=== PATIENT | female | born 1965 | race Caucasian/White ===

== ENCOUNTER 2024-04-30 12:13 | Emergency (ER) | payer SELFPAY ==
[2024-04-30] MEDS ORDERED: Sodium Chloride 0.9% 10 ML Syringe FLUSH PRN (12:46)
[2024-04-30 12:53] LABS: BASOPHILS ABSOLUTE AUTO 0.1 x10^3/uL (0.0-0.2); BASOPHILS PERCENT AUTO 0.3 % (0.2-1.2); EOSINOPHILS ABSOLUTE AUTO 0.4 x10^3/uL (0.0-0.5); EOSINOPHILS PERCENT AUTO 2.3 % (0.0-4.0); HEMATOCRIT 45.9 % (33.0-47.0); IMMATURE GRAN ABSOLUTE AUTO 0.03 x10^3/uL (0.00-0.07); LYMPHOCYTES ABSOLUTE AUTO 3.1 x10^3/uL (1.0-4.8); LYMPHOCYTES PERCENT AUTO 18.6 % (25.0-50.0); MEAN CORPUSCULAR HEMOGLOBIN 31.9 pg (26.0-32.0); MEAN CORPUSCULAR HGB CONC 34.9 g/dL (32.0-36.0); MEAN CORPUSCULAR VOLUME 91.6 fL (78.0-93.0); MONOCYTES PERCENT AUTO 5.9 % (2.0-11.0); NEUTROPHILS ABSOLUTE AUTO 12.1 x10^3/uL (1.8-7.7); NEUTROPHILS PERCENT AUTO 72.7 % (50.0-80.0); PLATELET COUNT,PLT 291 x10^3/uL (130-400); RED BLOOD CELL COUNT 5.01 x10^6/uL (4.00-5.50); WHITE BLOOD CELL COUNT,WBC 16.7 x10^3/uL (4.0-10.0)
[2024-04-30] MEDS: Ondansetron 4 MG/2 ML SDV IVPUSH ONE ×2 (12:54→17:29)
[2024-04-30] MEDS: Ketorolac 30 MG/ML SDV IVPUSH ONE (12:54)
[2024-04-30 12:55] LABS: BILIRUBIN,URINE NEGATIVE (NEGATIVE); COLOR,URINE YELLOW (YELLOW); GLUCOSE,URINE NEGATIVE (NEGATIVE); KETONES,URINE NEGATIVE (NEGATIVE); LEUKOCYTE ESTERASE,URINE TRACE (NEGATIVE); NITRITE,URINE NEGATIVE (NEGATIVE); OCCULT BLOOD,URINE NEGATIVE (NEGATIVE); PROTEIN,URINE TRACE mg/dL (NEGATIVE)
[2024-04-30] MEDS: fentaNYL 100 MCG/2 ML SDV IVPUSH ONE (12:55)
[2024-04-30 13:02] LABS: APPEARANCE,URINE SLIGHTLY CLOUDY (CLEAR)
[2024-04-30 13:04] LABS: A/G RATIO 0.8; ALBUMIN 3.6 g/dL (3.4-5.0); BILIRUBIN TOTAL 0.5 mg/dL (0.2-1.0); CALCIUM 9.6 mg/dL (8.5-10.1); EST CRCL DRUG DOSING (CG) 60.36 mL/min; POTASSIUM,K 3.9 mmol/L (3.5-5.1); PROTEIN TOTAL,TP 8.1 g/dL (6.4-8.2)
[2024-04-30 13:05] LABS: BACTERIA,URINE FEW /HPF (NOT SEEN); MUCUS,URINE FEW /LPF (NOT SEEN); RBC,URINE 0-5 /HPF (NOT SEEN); SQUAMOUS EPITHELIAL CELLS,UR NOT SEEN /HPF (NOT SEEN)
[2024-04-30 13:06] LABS: ANION GAP 17.9 mmol/L (5-15)
[2024-04-30] MEDS: Lactated Ringers 1,000 ML IV ONE (13:11)
[2024-04-30] MEDS: HYDROmorphone 1 MG/ML Syringe IVPUSH ONE ×3 (14:50→17:24)
[2024-04-30] MEDS: cefTRIAXone 2 GM Vial IVPUSH ONE (14:50)
== END 2024-04-30 17:30 | disposition short-term general hospital (02) ==
LOC: VM.ED 12:13
DX: N83.8 Other noninflammatory disorders of ovary, fallopian tube and broad ligament (principal); D72.829 Elevated white blood cell count, unspecified
CPT/HCPCS: 74176; 80053; 81001; 85025; 87086; 87088; 87186; 96361; 96374; 96375; 96376; 99284; 99285-25; J0696; J1170; J1885; J2405; J3010; J7120